=== PATIENT | female | born 1985 | race Caucasian/White ===

== ENCOUNTER 2017-10-21 16:11 | Emergency (ER) | payer MEDICAID ==
[~2017-10-21] VITALS: Ht 165.1 cm; Wt 57.0 kg
[2017-10-21 16:35] VITALS: BP 115/74
== END 2017-10-21 17:15 | disposition home or self-care (01) ==
LOC: ER 16:12
DX: S06.0X0A Concussion without loss of consciousness, initial encounter (principal); V09.9XXA Pedestrian injured in unspecified transport accident, initial encounter; Y93.89 Activity, other specified; Y92.89 Other specified places as the place of occurrence of the external cause; Y99.8 Other external cause status
CPT/HCPCS: 99281

== ENCOUNTER 2017-12-17 23:55 | Emergency (ER) | payer MEDICAID ==
[~2017-12-17] VITALS: Ht 167.6 cm; Wt 59.1 kg
[2017-12-18 00:15] VITALS: BP 118/69
[2017-12-18] MEDS ORDERED: cephalexin 500mg capsule PO ONE (01:20)
[2017-12-18] MEDS ORDERED: CEPH500C5 PO (01:21)
[2017-12-18] MEDS ORDERED: diphenhydrAMINE 25mg capsule PO ONE (01:40)
== END 2017-12-18 01:54 | disposition home or self-care (01) ==
LOC: ER 23:56
DX: L03.113 Cellulitis of right upper limb (principal); F17.200 Nicotine dependence, unspecified, uncomplicated; Z79.899 Other long term (current) drug therapy
CPT/HCPCS: 99283; Q0163